=== PATIENT | female | born 1960 | race Caucasian/White ===

== ENCOUNTER 2025-03-22 09:30 | Outpatient (OUT) | payer MEDICARE, SELFPAY ==
[2025-03-22 10:49] LABS: Alanine Aminotransferase 27 U/L (14-59); Albumin Globulin Ratio 1.1; Albumin Level 3.9 g/dL (3.4-5.0); Alkaline Phosphatase 153 U/L (46-116); Anion Gap 8.4; Aspartate Amino Transferase 26 U/L (15-37); Blood Urea Nitrogen 11.0 mg/dL (7.0-18.0); Calcium 8.8 mg/dL (8.5-10.1); Carbon Dioxide 32.4 mmol/L (21.0-32.0); Chloride 106 mmol/L (98-107); Estimated GFR (African America >60 (>=60 mL/min/1.73m^2); Estimated GFR (Non-African Ame >60 (>=60 mL/min/1.73m^2); Globulin 3.5 g/dL; Glucose 94 mg/dL (74-106); Potassium 3.8 mmol/L (3.5-5.1); Sodium 143 mmol/L (136-145); Total Protein 7.4 g/dL (6.4-8.2)
== END 2025-03-22 09:31 | disposition home or self-care (01) ==
LOC: LAB 09:36
PROVIDERS: PCP Internal Medicine; Visit Provider Internal Medicine
DX: R79.9 Abnormal finding of blood chemistry, unspecified (principal)
CPT/HCPCS: 36415; 80053

== ENCOUNTER 2025-04-05 08:17 | Outpatient (OUT) | payer MEDICARE, SELFPAY ==
--- OUTSIDE RECORDS SUMMARY | 2025-03-23 09:30 | XMS_ITS | Continuity of Care Document ---
Author Organization [facility] Address [address] [place] [address] Phone Care Team Providers Care Rn Liaison Name Role Phone Robinson Vallecillo DO Primary Care Provider Mimi Paul MD Attending Provider Robinson Vallecillo DO Attending Provider Care Teams Patient Care Team Team Status: Active Member Role/Relationship Status Dates Robinson Vallecillo DO Primary Care Provider Active Visit Care Team Team Status: Active Member Role/Relationship Status Dates Robinson Vallecillo DO Primary Care Provider Active Start: February 03, 2025 Araceli Grullon ProviderActiveStart: February 03, 2025 Visit Care Team Team Status: Inactive Member Role/Relationship Status Dates Robinson Vallecillo DO Primary Care Provider Active Start: February 08, 2025 End: February 08Iris Russ ProviderActiveStart: February 08, 2025 End: February 08, 2025 Patient Care Team Team Status: Active Member Role/Relationship Status Dates Robinson Vallecillo DO Primary Care Provider Active Start: March 22, 2025 Iris Palencia ProviderActiveStart: March 22, 2025 Patient Care Team Team Status: Inactive Member Role/Relationship Status Dates Robinson Vallecillo DO Primary Care Provider Active Start: March 23, 2025 End: March 23Iris Russ ProviderActiveStart: March 23, 2025 End: March 23, 2025 Chief Complaint and Reason for Visit Chief Complaint Admit Date Discuss Meds for Anxiety February 08 025 9:42am back pain March 23, 2025 1 :48pm Reason for Visit Admit Date PRICILA (generalized anxiety disorder) er 2024 9:42am GERD (gastroesophageal reflux disease) O ctober 2024 9:42am Hypertension February 08, 2025 9 :42am Abdominal pain March 23, 2025 1 :48pm Low back pain March 23, 2025 1 :48pm Allergies, Adverse Reactions, Alerts Allergen Type Severity Reaction Last Updated Verified Status No Known Allergies Allergy Unknown March 23, 2025 1:50pmYesActive Social History Smoking Status Status Start Date End Date Date of Observa tion Never smoked tobacco (finding) October 27, 2024 11:36am Observation Status Observation Response Date of Response Legal Sex Female (finding) [facility] 1960 Family History Relationship Condition Age at Onset Recorded Date/T [place] father Unknown Malignant neoplasmUnknownmotherDeceasedUnknownsisterMalignant neoplasm of colon Unknown Problems Active Problems Problem Diagnosis/Recorded Date Onset Date Stat PRICILA (generalized anxiety disorder) November 24, 2023 1 2:53pm Unknown Active Screening mammogram for breast cancer December 10 8:44pm Unknown Active Family hx of colon cancer June 29, 2024 1:45pm Unkn own Active Menopause November 24, 2023 12:54pm Unknown Ac tive Low back pain March 23, 2025 2:26pm Unknown A ctive GERD (gastroesophageal reflux disease) November 23 12:53pm Unknown Active Abdominal pain March 23, 2025 2:26pm Unknown Active Hypertension February 08, 2025 9:17am Unknown Ac tive Medications Medication Status Dose Units Route Directions Qty Days Refills S tart Date Stop Date End Date Reason(s) Instructions Adherence Telmisartan 40 mg tablet Discontinued 40 MG PO Daily 30 30 5 February 25, 2025 1:35pm March 23, 2025 2:14pmMeclizine 25 mg cjteugAqddokxtjdly0ZFCPOTqdbp 12 November 25, 2023 11:00pmJune 2024 6:45amFreeTextSi tablet as needed Orally every 12 hrs; Note: Source Status: Taking; Provider: Avel Bowers ( )Solifenacin (Vesicare) 5 mg zhgnmjQkbdnvrnceub1RFSMQstzcOxeeds 2023 11:00pmJune 2024 6:45amFluticasone Propionate 50 mcg/actuation spray,wuinsieumrHfsmipngrqvd1TTTPZPFQHJSMACPAquyeAppnpw 2023 11:00pmJune 2024 6:45amFreeTextSi sprays (1 spray in each nostril) Nasally Once a day; Note: Source Status: Taking; Refills: 1; Qty: 1 Each; Provider: Cass Amanda EOmeprazole 40 mg capsule,delayed release(DR/EC)Eqopgergdvva15VNPWWwzvn as neededFebruary 08, 2025 8:47amDece2024 2:13pmtake on an empty stomach, 30 minutes before bkfst to prevent heartburnAlprazolam 0.25 mg tablet Active0.25MGPODaily at bedtime as needed for qqgjlxe07898Leluacs 26th, 2025 11:00pmGeneralized anxiety disorder Generalized anxiety disorderComplies with drug therapyTelmisartan 20 mg tablet Pefxggoolbkz89EDCBYxgoz04533Okkypvo 2024 11:00pmNov2024 1:35pm Omeprazole 40 mg capsule,delayed release(DR/EC)Idzfzszmdoxb69IGSABtwxc79569 March 23, 2025 2:13pmDece2024 2:14pmtake on an empty stomach, 30 minutes before bkfst to prevent heartburnTelmisartan 40 mg tynrfiKfnemf38ZXLC Jhqkv61889Diqneyqa 9th, 2025 2:14pmComplies with drug therapyOmeprazole 40 mg capsule,delayed release(DR/EC)Itwxhu29PGBAIrlku62790Lmnsokmo 9th, 2025 12:00am Complies with drug therapyOmeprazole 40 mg capsule,delayed release(DR/EC) Mrafqyyyxkyu50JOKRLmjex56069Cvtjbqjlt 1st, 2025 11:00pmOcttaylor regional hospital 2024 8:47am take on an empty stomach, 30 minutes before bkfst to prevent heartburn Immunizations Immunization Event Date Not Given Reason Dose Number Utility Bill Collector Lot Number Reason(s) Given Vaccine Information Statement (VIS) Detail [facility]) June 30, 2020 [id number] mRNA-1273 (Moderna)July [id number]-34 mRNA, Comirnaty (Pfizer)March 31, [id number]-19 Comirnaty (Pfizer) Tri- Sucrose +October 25, [id number], seasonal, injectable, pfOctober [id number], unspecified formulationOctober 2015influenza, unspecified formulationJanuary 2020Quadrivalent InfluenzaJanuary [id number] InfluenzaDecember [id number] Relevant Diagnostic Tests and/or Laboratory Data Laboratory Results Test Collection Date/Time Result Date/Time Result Interpretation Reference Range Result Comment Performing Site PAP Report Status (Off Site) February 03, 2025 11:17am February 03, 2025 11:17am See comment Gynecologic Cytology Report Case: [id number] Authorizing Provider: Mimi Paul MD Collected: 02/03/2025 12:17 PM Ordering Location: Gynecology Oncology Received: 02/03/2025 12:21 PM First Screen: Jacob Smith CT, ASCP Rescreen: Sheela Angeles CT, ASCP Specimen: Pap Test, ThinPrep, VaginaHuman Papilloma Virus Type 16October 2024 11:17amOctober 2024 11:17amNot detectedNot detectedCandida species (PCR)February 03, 2025 11:22amOctober 2024 11:22amNot detectedNot detectedThe Liza species group target includes C. albicans, C. tropicalis, C. parapsilosis, and C. dubliniensis.Vaginitis Organisms RNA ProbeOctober 2024 11:22amOctober 2024 7:32pmNot detectedNot detectedAnion GapDecember 2024 9:55amDecember 2024 9:55am 8.4Pap Smear Specimen AdequacyOctober 2024 11:17amOctober 2024 11:17amSatisfactory for interpretation.Human Papilloma Virus Type 18October 2024 11:17amOctober 2024 11:17amNot detectedNot detectedTrichomonas vaginalis (ANGELITO)February 03, 2025 11:22amOctober 2024 11:22amNot detected Not detectedAlbumin/Globulin RatioDece2024 9:55amDecember 2024 9:55am1.1Pap Last Menstrual Period (LMP)February 03, 2025 11:17amOctober 2024 11:17am1/1/1996HPV DNA Probe with Refl to GenotypeFebruary 03, 2025 11:17amOctober 2024 11:17amNot detectedNot detectedHigh Risk HPV Other Type includes HPV types 31, 33, 35, 39, 45, 51, 52, 56, 58, 59, 66 and 68. Liza glabrata (ANGELITO)February 03, 2025 11:22amOctober 2024 11:22amNot detectedNot detectedAlbuminDecember 2024 9:55amDecember 2024 9:55am3.9 g/dL3.4-5.0Pap Previous HistoryFebruary 03, 2025 11:17amOctober 2024 11:17amDysplasiaAlkaline PhosphataseMarch 22, 2025 9:55amDecember 2024 9:70je247 U/LAbove high wisfhh84-791Yqylmaiovkz Cytology Report (MISC)February 03, 2025 11:17amOctober 2024 11:17amSee commentNegative for intraepithelial lesion or malignancy. at 1504 EDTAlanine Aminotransferase (ALT/SGPT)March 22, 2025 9:55amDecember 2024 9:55am27 U/N22-65Lqtuuandantiu Test Comment February 03, 2025 11:17amOctober 2024 11:17amSee commentTechnical component, heat welder plastics screening performed at: [facility], [address] [place] [address] CLIA: [id number] Diagnostic interpretation performed at: [facility], [address] [place], [place] [address]IA# [id number] Director: Biju Sue MD Aspartate Amino Transf (AST/SGOT)March 22, 2025 9:55amDecemb2024 9:55am26 U/O55-84Hsr Smear NoteOctober 2024 11:17amOctober 2024 11:17amBUN/Creatinine RatioDece2024 9:55amDecemb2024 9:55am 25.6Pap Smear CommentOctober 2024 11:17amOctober 2024 11:17amBlood Urea Nitrogence2024 9:55amDece2024 9:55am11.0 mg/dL 7.0-18.0Calcium LevelDece2024 9:55amDecemb2024 9:55am8.8 mg/dL 8.5-10.1Chloride Levelce2024 9:55amDecemb2024 9:32yl175 mmol/K07-918Djepkv Dioxide LevelDece2024 9:55amDece2024 9:55am32.4 mmol/LAbove high ozebjw92.0-32.0CreatinineDece2024 9:55am March 22, 2025 9:55am0.43 mg/dLBelow low normal0.55-1.02Estimated GFR ()March 22, 2025 9:55amDece2024 9:55am>60>=60 mL/min/1.73m 2Estimated GFR (Non- AmericanDe2024 9:55am March 22, 2025 9:55am>60>=60 mL/min/1.73m 2GlobulinDece2024 9:55am March 22, 2025 9:55am3.5 g/dLGlucose LevelDece2024 9:55amDecemb2024 9:55am94 mg/lF20-390Fqqdhblum LevelDecopper springs east hospital 2024 9:55amDecember 2024 9:55am3.8 mmol/L3.5-5.1Sodium LevelDecopper springs east hospital 2024 9:55amDecember 2024 9:01qc640 mmol/J572-173Jcpgj BilirubinDecopper springs east hospital 2024 9:55am March 22, 2025 9:55am0.7 mg/dL0.2-1.0Total ProteinDecopper springs east hospital 2024 9:55am March 22, 2025 9:55am7.4 g/dL6.4-8.2 Vital Signs Vital Reading Result Reference Range Collection Date/Time Height 59 [in_i] February 08, 2025 8:30htVuqgvi82.48 kgA[facility] 20[facility] 8:44amBody Temperature 97.4 [degF]97.6-99.0[facility] 2024 8:44amHeart Rate61 /ttq74-743Pqrpdyh 2024 8:44amOxygen saturation by Pulse myefoqpv65 %95-100[facility] 2024 8:44amBP Fttaibhh500 mm[Hg]100-140[facility] 2024 8:44amBP Zbefvtulq06 mm[Hg]60-100[facility] 2024 8:44amBMI (Body Mass Index)22.9 kg/e7Tvqpmhk 2024 8:25xcVlvyvx39 [in_i]March 23, 2025 1:58ojUuobbj91.70 kgKind[facility] 2024 1:56pmHeart Rate67 /dgv71-137Zdoztqjn 2024 1:56pmRespiratory rate 12 /rqc65-33Cvdfykre 2024 1:56pmBP Jlngkzpw510 mm[Hg]100-140[facility] 2024 1:56pmBP Muthinhhq86 mm[Hg]60-100[facility]cere[facility] 2024 1:56pmBMI (Body Mass Index)23.0 kg/t4Lrnqodzh 2024 1:56pm Advance Directives Advance Directive Response Recorded Date/ Time Advance Directives No September 18 5:49am Insurance Providers Guarantor Dona Guido Address [address] [facility] [id number] Info.Home Phone: Coverage Status Update:2024 Payer Group Member ID Coverage Type Subscriber Relationship to Subscriber Effective Date Expiration Date Medicare [id number] G Smith Id: [id number] [address] [facility] [address] Home Phone: Self Encounters Encounter Location(s) Arrival/Admit Date Discharge/Departure Date Discharge/Departure Disposition Provider(s) Non-patient / Non-visit -[facility] O ctober 2024 12:22pm Mimi Paul , MDDeparted Physician/Provider [facility] 9:42amOctober 2024 10:13amDischarged to home care or self care (routine discharge)Oliver Palencia-patient / [facility]Decetanmay 2024 9:55amBenjamedina Vallecillo DO Departed Physician/Provider [facility] 2024 1:48pmDecember 2024 2:28pmDischarged to home care or self care (routine discharge)Robinson Vallecillo DO Recent Diagnosis Onset Date Admit Date PRICILA (generalized anxiety disorder) Unknown February 08, 2025 9:42am GERD (gastroesophageal reflux disease) Unknown February 08, 2025 9:42am Hypertension Unknown February 08 9:42am Abdominal pain Unknown March 23 1:48pm Low back pain Unknown March 23 1:48pm Assessments Diagnosis Onset Date Resolution Status Admit Date PRICILA (generalized anxiety disorder) acuteOctober 2024 9:42amGERD (gastroesophageal reflux disease)acuteOctober 2024 9:42amHypertensionacuteOctober 2024 9:42amAbdominal painacute March 23, 2025 1:48pmLow back painacuteDecember 2024 1:48pm Plan of Treatment Author Robinson Vallecillo [facility] HospitalAuthoredOctober 2024 9:20amI have instructed this patient to avoid lying flat after eating.?? I have also recommended to avoid eating 2 hours prior to bedtime.?? They were also informed that smaller, frequent meals may be better tolerated. I have discussed additional treatment options for persistent symptoms, which includes: weight loss, H2 blockers and PPI. I have also instructed them to notify the office with any pain or difficulty swallowing. Initiate Omeprazole and complete 2 month course of treatment Her symptoms have improved. Instructed on health diet and avoidance of caffeine and alcohol. Instructed on regular exercise routine. Instructed on proper sleep routine Initiated Xanax - discussed healthy lifestyle and counseling - she doubts she will need to use often - she is aware of the sedative properties - she did not want to take anything daily - she is aware that if her use escalates, will need to initiate SSRI I have instructed this patient to consume a healthy, low-fat, low-salt diet. I have also encouraged them to continue exercise with weight loss to achieve/maintain a BMI < 30. I have instructed this patient on the correct procedure for obtaining home BP measurements:? - rest for 5 minutes w/o talking. - positioned w/ feet on floor and arms supported. - average best 2/3 readings w/ goal < 135/85. Update office w/ home readings in 2 weeks. Initiated Telmisartan 20mg qd Future Tests Future scheduled test information is unavailable Pending Tests Test Name Ordered Date Scheduled Date CT abdomen pelvis w con March 23, 2025 2:25p m XR lumbar spine 6V w bendingDecember 2024 2:25pm Future Visits Future appointment information is unavailable Future Procedures Future procedure information is unavailable Future Medications Future medication information is unavailable Patient Instructions Instruction Admit Date Low back pain in adults March 23 1:48pm
--- OUTSIDE RECORDS SUMMARY | 2025-04-05 08:23 | XMS_ITS | Clinical Summary ---
Author Organization [facility] Address [address] [place] [address] Care Team Providers Care Wastewater Design Engineer Name Role Phone Robinson Vallecillo DO Primary Care Provider [phone] Allergies No known active allergies Medications MedicationSigDispense QuantityRefillsLast FilledStart DateEnd DateStatus ibuprofen (MOTRIN) 800 mg tablet Take 1 tablet by mouth every 8 hours as needed for pain. 30 tablet ctive Active Problems ProblemNoted DateDiagnosed DateGeneralized anxiety nwrowyws14/30/2024 Clmoxkfaxsysqryytbul93/30/2024 Assessment & Plan (01/13/2024 9:05 AM EDT): Assessment: Not on statin Diet Modification Encounters DateTypeDepartmentCare LiwxGuxerlkotik38/28/2025Telephone Gynecology Oncology [address] [id number] Mary Maciel, THERMIT WELDING MACHINE OPERATOR.PRE SALES NETWORK ENGINEER 02/08/2025Results Follow-Up Gynecology Oncology [address] [phone] Barbie Dia, THERMIT WELDING MACHINE OPERATOR.PRE SALES NETWORK ENGINEER 02/03/2025 10:45 AM EDTNurse Visit Hematology/Oncology [address] [place] [address] [place] [address] Luda Reeves Urinary tract infection without hematuria, site unspecified (Primary Dx) 02/03/2025 10:45 AM EDTVisit (SP) Office Gynecology Oncology [address] [address] Mimi Paul MD 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) (Primary Dx); Vaginal discharge; Qbnxkof7202/03/2025Travelfrom Last 3 Months Family History Medical HistoryRelationCommentsNo Known ProblemsFatherBreast CancerMother HypertensionMotherColon CancerSisterRelationStatusCommentsFatherMotherSister Social History Tobacco UseTypesPacks/DayYears UsedDateSmoking Tobacco: NeverSmokeless Tobacco: Never Tobacco Cessation:Counseling Given: Not Answered Alcohol UseStandard Drinks/WeekCommentsNever0 (1 standard drink = 0.6 oz pure alcohol)Area Deprivation IndexAnswerDate RecordedNational Score (1-100), lower number is lower edjq487012/25/2023State Score (1-10), lower number is lower risk8 12/25/2023ata from: https://www.neighborhoodatlas.medicine.[facility].edu/. Last address used for ictqylalemt[address]12/25/2023CommentsNoSex and Gender InformationValueDate RecordedSex Assigned at KktinScjeaj80/27/2024 3:14 PM EDTLegal DdlPvzylt39/27/2023 1:52 PM EDTGender DjvdesqaRzzoem99/27/2024 3:14 PM EDTSexual VqhktrbjrehJcjlmigj83/27/2024 3:14 PM EDT Last Filed Vital Signs Vital SignReadingTime TakenCommentsBlood Ikkkdgnh585/7502/03/2025 11:20 AM EDT Yngnk207102/03/2025 11:20 AM USYQbflltlvvpq79.2 ??C (97.2 ??F)02/03/2025 11:20 AM EDTRespiratory Iymt2316 11:20 AM EDTOxygen Mfsrxwpnjc36%02/03/2025 11:20 AM EDTInhaled Oxygen Concentration--Vlpboo19.4 kg (113 lb 5.1 oz)02/03/2025 11:20 AM LRNUljlua253.9 cm (4' 11 )01/13/2024 8:44 AM EDTBody Mass Index22.89 01/13/2024 8:44 AM EDT Plan of Treatment Health MaintenanceDue DateLast DoneCommentsDepression Nrxuqqpcf37/05/1977 Hepatitis C Ibjqppgqv92/05/1977DTaP,Tdap,Td Vaccine (1 - Tdap)1977CT Rsoirbnjtaym87/05/2004Cologuard (FIT-DNA)06/18/20038997Bwfxuscinwk99/05/2004 Colorectal Cancer Swbbywzue37/05/2004Fecal Occult Blood06/18/2003Lipid Screening 06/18/20033091Wckmrrdhxkmmu66/05/2004Pneumococcal Vaccine: 50+ (1 of 1 - PCV) 2008Shingrix Vaccine (1 of 2)2008one Density Xnfqickmc64/05/2024 Medicare Annual Wellness Visit11/14/2023dvance Directive Dsfpeoospg67/01/2025 Mammogram Yngwvbfat40/, 09/13/2023, 06/01/2021, Additional history existsCovid-19 Vaccine ( season)/, 03/31/2021, 07/28/2020, Additional history existsInfluenza Vaccine (#1) 512/, 04/29/2020, 04/28/2020, Additional history existsCervical Cancer Vmxrbaglf50/22/259676/, 02/03/2025, 12/25/2023, Additional history existsDiabetes Uditejhzj49/09/010887/12/2024, 4RSV Vaccine (1 - 1-dose 75+ series)2033 Procedures Procedure NamePriorityDate/TimeAssociated DiagnosisCommentsUA DIP, URINE (POC) Zehjvqj3802/03/2025 12:31 PM EDT BACTERIAL VAGINOSIS GJLNClimaeq53/22/2025 12:22 PM EDT Vaginal discharge LIZA/TRICHOMONAS TXGVXagmkqu18/22/2025 12:22 PM EDT Vaginal discharge HIGH RISK HUMAN PAPILLOMA VIRUS (HPV), PCR FOR DETECTION AND GENOTYPINGRoutine 02/03/2025 12:17 PM EDT 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) PAP NIIXIyrokkv84/22/2025 12:17 PM EDT 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) COMPREHENSIVE METABOLIC WVJRDSskqjtr08/09/2025 7:20 AM EDT Lower abdominal pain Nausea from Last 3 Months or Most Recently Relevant to Health Maintenance Results * (ABNORMAL) UA DIP, URINE (POC) (02/03/2025 12:31 PM EDT)ComponentValueRef RangeTest MethodAnalysis TimePerformed AtPathologist SignatureGLUCOSE UA (POCT)NegativeNegative mg/dLSMunson Healthcare Charlevoix HospitalBILIRUBIN UA (POCT)Negative NegativeSMunson Healthcare Charlevoix HospitalKETONE UA (POCT)NegativeNegative mg/[facility] HospitalPECIFIC GRAVITY UA (POCT)1.0151.005 - 1.030[facility] HospitalHEMOGLOBIN/BLOOD UA (POCT)Trace-intact(A)NegativeSMunson Healthcare Charlevoix Hospital PH UA (POCT)7.04.5 - 8.0[facility] HospitalPROTEIN UA (POCT)Negative Negative mg/[facility] CenterUROBILINOGEN UA (POCT)0.2Normal E.U./dL [facility] HospitalNITRITE UA (POCT)NegativeNegativeSMunson Healthcare Charlevo[facility] Hospital LEUKOCYTES UA (POCT)NegativeNegativeSMunson Healthcare Charlevoix HospitalCOLOR UA (POCT) YellowPaul Oliver Memorial HospitalCLARITY UA (POCT)[facility] Specimen (Source)Anatomical Location / LateralityCollection Method / Volume Collection TimeReceived Time02/03/2025 12:31 PM EDT Narrative [facility] - 02/03/2025 12:31 PM EDT Location:[facility], [address] [place] [address] , [place], [place], [address] Authorizing ProviderResult TypeResult StatusCcf ProviderPOC TESTINGFinal Result Performing OrganizationAddressCity/State/ZIP CodePhone Number [facility] [address] [place], [place] * LIZA/TRICHOMONAS NAAT (02/03/2025 12:22 PM EDT)ComponentValueRef RangeTest MethodAnalysis TimePerformed AtPathologist SignatureCandida species group RNA Not detectedNot detected PANTHER SYSTEM HOLOGIC 02/03/2025 8:52 PM EDTCMORROW COUNTY [facility]OS[facility] MAIN LABComment:The Liza species group target includes C. albicans, C. tropicalis, C. parapsilosis, and C. anjel iensis.Liza glabrata RNANot detectedNot detected PANTHER SYSTEM HOLOGIC 02/03/2025 8:52 PM EDTCMCKITRICK HOSPITALAND CLINIC MAIN LABTrichomonas vaginalis RNANot detectedNot detected PANTHER SYSTEM [facility]ENTERGIC 02/03/2025 8:52 PM EDTCMCKITRICK HOSPITALAND [facility] MAIN LABSpecimen (Source)Anatomical Location / LateralityCollection Method / VolumeCollection TimeReceived TimeSwab VAGINAL STRUCTURE / Upjeszl3702/03/2025 12:22 PM EDT1 12:22 PM EDT Narrative Authorizing ProviderResult TypeResult StatusMickettering health greene memorialchristy Paul MDMICROBIOLOGY Final ResultPerforming OrganizationAddressCity/State/ZIP CodePhone Number [facility] [address] [place] [address], * BACTERIAL VAGINOSIS NAAT (02/03/2025 12:22 PM EDT)ComponentValueRef RangeTest MethodAnalysis TimePerformed AtPathologist SignatureBacterial vaginosisNot detectedNot detected PANTHER SYSTEM [facility] 02/03/2025 8:32 PM EDTCMORROW COUNTY HOSPITAL MAIN LABSpecimen (Source)Anatomical Location / LateralityCollection Method / VolumeCollection TimeReceived TimeSwab VAGINAL STRUCTURE / Ijrwnnd7002/03/2025 12:22 PM EDT1 12:22 PM EDT Narrative Authorizing ProviderResult TypeResult StatusMicdulce Paul MDMICROBIOLOGY Final ResultPerforming OrganizationAddressty/State/ZIP CodePhone Number [facility] [address] [place] [address], * PAP TEST (02/03/2025 12:17 PM EDT)ComponentValueRef RangeTest MethodAnalysis TimePerformed AtPathologist SignatureCase ReportGynecologic Cytology Report ? Case: [id number] ? Authorizing Provider: ??Mimi Paul MD Collected: ? 02/03/2025 12:17 PM ? Ordering Location: ? Gynecology Oncology ?Received: ?02/03/2025 12:21PM ? First Screen: ?Jacob Smith, CT, ASCP ? Rescreen: ?Sheela Angeles, VIRAJ, ? ASCP ? Specimen: ?Pap Test, ThinPrep, Vagina ? 02/08/2025 3:04 PM EDTCLEVELAND ELBOW LAKE [facility] MAIN LABSpecimen AdequacySatisfactory for interpretation.02/08/2025 3:04 PM EDTCLEVELAND ELBOW LAKE [facility] MAIN LABInterpretation Negative for intraepithelial lesion or malignancy.02/08/2025 3:04 PM EDT [facility] at 1504 EDTClinical YdxnfmqYeohuncra27/27/2025 3:04 PM [facility] LABLMP1 3:04 PM [facility] LABPap DisclaimerThe Pap Smear is a screening test for cervical cancer. False negative results occur with all screening tests, emphasizing the need for rescreening at recommended intervals, and clinical correlation.02/08/2025 3:04 PM [facility] LABPAP Interactive Digital Media Specialist CommentThis specimen has been analyzed by the FDA- approved amazingtunes System, which usesdigital imaging and an enhanced artificial intelligence image analysis algorithm to identify fieldsof interest on the microscopic slide, to assist the inspector technician and pathologist in evaluating cells on ThinPrep Pap tests. Following analysis, mckeon of interest on the microscopic slide selected by the algorithm are reviewed by a inspector technician. If a sample requires hierarchical review, the pathologistwill review the same mckeon of interest selected by the algorithm prior to final interpretation. 02/08/2025 3:04 PM [facility] LABPerforming LabTechnical component, customer experience analyst screening performed at: [facility], [address] [place] [address] CLIA: [id number] Diagnostic interpretation performed at: [facility], [address] [place] [address] [id number] CLIA# [id number] Bonus Clerk: Biju Sue MD 02/08/2025 3:04 PM [facility] LABSpecimen (Source)Anatomical Location / LateralityCollection Method / VolumeCollection TimeReceived Time Sterile Fluid/Body FluidVAGINAL STRUCTURE / Iiwmjqu6602/03/2025 12:17 PM EDT 02/03/2025 12:21 PM EDT Narrative Authorizing ProviderResult TypeResult StatusMichelchristy Paul MDCYTOLOGY Final ResultPerforming OrganizationAddressCity/State/[place] [address], * HIGH RISK HUMAN PAPILLOMA VIRUS (HPV), PCR FOR DETECTION AND GENOTYPING (02/03/2025 12:17 PM EDT)ComponentValueRef RangeTest MethodAnalysis Time Performed AtPathologist SignatureHigh Risk HPV Type 16 DNANot detectedNot abxmsedx60/27/2025 3:04 PM EDTCMORROW COUNTY H[facility]ITAL MAIN LABHigh Risk HPV Type 18 DNANot detectedNot gdpxauny07/27/2025 3:04 PM EDTCMORROW COUNTY [facility] MAIN LABHigh Risk HPV Other Type DNANot detectedNot rgmyosnc91/27/2025 3:04 PM EDTCMORROW COUNTY H[facility] MAIN LABComment:High Risk HPV Other Type includes HPV types 31, 33, 35, 39, 45, 51, 52, 56, 58, 59, 66 and 68.Specimen (Source)Anatomical Location / LateralityCollection Method / VolumeCollection TimeReceived TimeSterile Fluid/Body FluidVAGINAL STRUCTURE / Mbtoqrr3502/03/2025 12:17 PM EDT1 3:21 PM EDT Narrative [facility] - 02/08/2025 3:04 PM EDT This test was developed and its performance characteristics determined by [facility]'s [facility] Pathology and Laboratory Medicine [place] ([facility]). It has not been cleared or approved by the FDA. -PL[facility] is regulated under CLIA as qualified to perform high-complexity testing. This test is used for clinical purposes. It should not be regarded as investigational or for research. Authorizing ProviderResult TypeResult StatusMichelchristy Paul MDLABORATORY Final ResultPerforming OrganizationAddressCity/State/ZIP CodePhone Number [facility] [address] * (ABNORMAL) COMPREHENSIVE METABOLIC PANEL (07/22/2024 7:20 AM EDT)Component ValueRef RangeTest MethodAnalysis TimePerformed AtPathologist Signature Protein, Total7.06.3 - 8.0 g/dL07/22/2024 8:13 AM EDTNORTHCOAST BEAUMONT [facility] LABAlbumin4.43.9 - 4.9 g/dL07/22/2024 8:13 AM EDTNORTHCST BEAUMONT [facility]OSPITAL LABCalcium, Total9.58.5 - 10.2 mg/dL07/22/2024 8:13 AM EDTNORTMETROPOLITAN SAINT LOUIS PSYCHIATRIC CENTERST [facility] LABBilirubin, Total0.40.2 - 1.3 mg/dL 07/22/2024 8:13 AM [facility] LABAlkaline Rvqzotdgvbf050(H)34 - 123 U/L07/22/2024 8:13 AM [facility] AXMEVI0689 - 35 U/L07/22/2024 8:13 AM [facility] XEUHQZ305 - 38 U/L07/22/2024 8:13 AM [facility] COGPsrbrhg533(H)74 - 99 mg/dL07/22/2024 8:13 AM [facility] LABComment: The [place] Diabetes Association (ADA) provides guidance for cutoff values for fasting glucose andrandom glucose. The ADA defines fasting as no caloric intake for at least 8 hours. Fasting plasma glucose results between 100 to 125 mg/dL indicate increased risk for diabetes (prediabetes). Fasting plasma glucose results greater than or equal to 126 mg/dL meet the criteria for diagnosis of diabetes. In the absence of unequivocal hyperglycemia, results should be confirmed by repeat testing. In a patient with classic symptoms of hyperglycemia or hyperglycemic crisis, random plasma glucose results greater than or equal to 200 mg/dL meet the criteria for diagnosis of diabetes. Reference: Standards of Medical Care in Diabetes 2016, [place] Diabetes Association. Diabetes Care. 2016.39(Suppl 1). LMC479 - 21 mg/dL07/22/2024 8:13 AM [facility] LAB Creatinine0.47(L)0.58 - 0.96 mg/dL07/22/2024 8:13 AM [facility] AYPHtgfzq114897 - 144 mmol/L07/22/2024 8:13 AM [facility] LABPotassium4.43.7 - 5.1 mmol/L07/22/2024 8:13 AM [facility] XLPSgbrlmug90254 - 107 mmol/L07/22/2024 8:13 AM [facility] DIIWF81140 - 30 mmol/L07/22/2024 8:13 AM [facility] LABAnion Gap7(L)8 - 15 mmol/L07/22/2024 8:13 AM [facility] LABEstimated Glomerular Filtration Qcmf133>=60 mL/min/1.73m 07/22/2024 8:13 AM [facility] LABComment:Estimated Glomerular Filtration Rate (eGFR) is calculated using the 2020 CKD-EPI creatinine equation. This equation utilizes serum creatinine, sex, and age as parameters. The creatinine assay has traceable calibration to isotope dilution- mass spectrometry. Refer to KDIGO guidelines for clinical interpretation. In patients with unstable renal function, e.g. those with acute kidney injury, the eGFRmay not accurately reflect actual GFR.Specimen (Source)Anatomical Location / LateralityCollection Method / VolumeCollection TimeReceived TimeBloodBLOOD SPECIMEN / UnknownVenipuncture / Mlhvvvz8407/22/2024 7:20 AM EDT07/22/2024 7:46 AM EDT Narrative Authorizing ProviderResult TypeResult StatusSuzanne Surovec THERMIT WELDING MACHINE OPERATOR.CNPLABORATORY Final ResultPerforming OrganizationAddressCity/State/ZIP CodePhone Number [facility] [address] [place] [phone] from Last 3 Months or Most Recently Relevant to Health Maintenance Insurance Care Teams Team MemberRelationshipSpecialtyStart DateEnd Date Robinson Vallecillo DO [address] [place] [address] PCP - GeneralInternal Medicine01/09/23
--- OUTSIDE RECORDS SUMMARY | 2025-04-05 08:23 | XMS_ITS | Clinical Summary ---
Author Organization [facility] Address [address] [place] [address] Care Team Providers Care C Python Developer Name Role Phone Robinson Vallecillo DO Primary Care Provider [phone] Allergies No known active allergies Medications MedicationSigDispense QuantityRefillsLast FilledStart DateEnd DateStatus solifenacin (VESIcare) 10 MG tablet Take 10 mg by mouth in the morning.10/09/2022ctive Family History Medical HistoryRelationNameCommentsBreast cancerMotherCancerMotherColon cancer SisterRelationNameStatusCommentsFatherDeceasedMotherDeceasedSister Social History Tobacco UseTypesPacks/DayYears UsedDateSmoking Tobacco: NeverSmokeless Tobacco: Never Tobacco Cessation:Counseling Given: Not Answered Alcohol UseStandard Drinks/WeekCommentsNot Currently0 (1 standard drink = 0.6 oz pure alcohol)CommentsNoSex and Gender InformationValueDate RecordedSex Assigned at BirthNot on fileLegal YkkBoytnb96/15/2023 7:05 PM EDTGender Identity Not on fileSexual OrientationNot on file Last Filed Vital Signs Vital SignReadingTime TakenCommentsBlood Wcvfuimk160/6204 3:41 PM EDT Pulse--Temperature--Respiratory Rate--Oxygen Saturation--Inhaled Oxygen Concentration--Jduzrc09 kg (108 lb)07/25/2023 3:41 PM XWIDopgwt407.7 cm (5' 0.5 )07/12/2022 12:00 PM EDTBody Mass Index20.75007/12/2022 12:00 PM EDT Plan of Treatment Not on file Insurance Care Teams Team MemberRelationshipSpecialtyStart DateEnd Date Robinson Vallecillo DO PCP - GeneralInternal Medicine12/11/22
--- NOTE | 2025-04-05 08:24 | CT_ITS ---
The [address] [address] Patient Name: NORIS AYALA MRN: [id number] date: 1960 Sex: F Assigned Patient Location: CT Current Patient Location: CT Accession/Order Number: [id number] Exam Date: 04/05/2025 09:30 Report Date: 04/05/2025 10:50 At the request of: JONATHAN EWING DO Procedure: CT abdomen pelvis w con CT ABDOMEN AND PELVIS WITH CONTRAST COMPARISON: Ultrasound 11/08/2018 CLINICAL DATA: Generalized abdominal pain and cramping. Spiral images were obtained through the abdomen and pelvis following oral and 100 mL of Omnipaque 300. This CT exam was performed using one or more following dose reduction techniques: Automated exposure control, adjustment of the mA and/or kV according to patient size, or use of iterative reconstruction technique. Limited cuts through the lung bases show minor dependent atelectasis. The heart is top normal in size. Fatty infiltration of liver is visualized. No intrahepatic masses are seen. No calcified gallstones are noted. The spleen, pancreas and adrenal glands show no acute findings. The renal nephrograms are symmetric. No hydronephrosis is identified. There are small left renal cysts. The abdominal aorta is normal caliber and there is minimal plaque. No enlarged lymph nodes or ascites are seen. The small bowel loops are not dilated. Stool is visualized along the colon. Levoscoliotic curvature and degenerative changes are present at the spine. Images through the pelvis show normal caliber small bowel loops. The appendix is not identified. There is stool at the distal colon. No diverticular disease is noted. The uterus is surgically absent. There are no bladder abnormalities for the degree of distention. No ascites is seen. There is degenerative change at the SI joints, greater on the right. CT/CT abdomen pelvis w con IMPRESSION: FATTY LIVER. LEFT RENAL CYSTS. NO BOWEL OR URINARY TRACT OBSTRUCTION. NO ACUTE FINDINGS. Impression dictated by: Celestina Ba M.D. 04/05/2025 10:50 AM Dictation Location: [facility]ITALClassDojoResy Network Electronically authenticated by: [id number] Date: 04/05/2025 10:50
== END 2025-04-05 08:18 | disposition home or self-care (01) ==
LOC: CT 08:19
PROVIDERS: PCP Internal Medicine; Visit Provider Internal Medicine
DX: R10.31 Right lower quadrant pain (principal); M54.50 Low back pain, unspecified; K76.0 Fatty (change of) liver, not elsewhere classified; N28.1 Cyst of kidney, acquired
CPT/HCPCS: 74177; Q9967